=== PATIENT | male | born 1960 | race Caucasian/White ===

== ENCOUNTER 2016-11-24 14:56 | Emergency (ER) | payer OTHER ==
[~2016-11-24] VITALS: Ht 172.7 cm; Wt 70.0 kg
[2016-11-24 14:59] VITALS: BP 158/78
[2016-11-24] MEDS ORDERED: IBUPROFEN 200 MG TABLET PO ONE (15:30)
[2016-11-24] MEDS ORDERED: IBUPROFEN 200 MG TABLET ONE (15:44)
== END 2016-11-24 16:25 | disposition home or self-care (01) ==
LOC: ED 16:19
DX: J00 Acute nasopharyngitis [common cold] (principal); J02.8 Acute pharyngitis due to other specified organisms
CPT/HCPCS: 87081; 87880; 99283

== ENCOUNTER 2018-02-12 23:41 | Emergency (ER) | payer OTHER ==
[~2018-02-12] VITALS: Ht 167.6 cm; Wt 67.0 kg
[2018-02-13] MEDS ORDERED: ONDANSETRON ODT 8 MG PO ONE (00:10)
[2018-02-13] MEDS ORDERED: LORazepam 2 MG/ML, 1ML ONE (00:14)
[2018-02-13] MEDS ORDERED: ONDANSETRON 2MG/ML, 2ML ONE (00:14)
[2018-02-13] MEDS ORDERED: PROMETHAZINE 25 MG/ML, 1ML ONE (00:14)
[2018-02-13 00:23] LABS: BASOPHILS # (AUTO) 0.02 x10^3/uL (0-0.1); BASOPHILS % (AUTO) 0 % (0-1); EOSINOPHILS % (AUTO) 0 % (1-7); LYMPHOCYTES # (AUTO) 0.48 x10^3/uL (1-3.4); LYMPHOCYTES % (AUTO) 10 % (22-44); MD NO; MEAN CORPUSCULAR HGB CONC 34.7 g/dL (33.2-36.2); MEAN CORPUSCULAR VOLUME 100.8 fL (81-97); MEAN PLATELET VOLUME 7.5 fL (7.4-10.4); MONOCYTES # (AUTO) 0.22 x10^3/uL (0.2-0.8); MONOCYTES % (AUTO) 4 % (2-9); NEUTROPHILS # (AUTO) 4.18 x10^3/uL (1.8-6.8); NEUTROPHILS % (AUTO) 85 % (42-75); PLATELET COUNT 110 x10^3/uL (130-400); RED BLOOD COUNT 4.38 x10^6/uL (4.38-5.82); RED CELL DISTRIBUTION WIDTH 12.5 % (9.4-14.8)
[2018-02-13 00:29] LABS: ALANINE AMINOTRANSFERASE 44 U/L (12-78); ALBUMIN 4.4 g/dL (3.4-5.0); ANION GAP 12 mmol/L (5-15); CALCIUM 8.9 mg/dL (8.5-10.1); CHLORIDE 104 mmol/L (98-107); CREATININE 0.68 mg/dL (0.7-1.3)
[2018-02-13] MEDS ORDERED: SODIUM CHLORIDE 0.9% 1,000ML IVBOLUS ONE (00:30)
[2018-02-13] MEDS ORDERED: LORazepam 2 MG/ML, 1ML IVPush PRN (00:30)
[2018-02-13] MEDS ORDERED: LORazepam 1MG TABLET PO ONE ×2 (00:30→02:30)
[2018-02-13] MEDS ORDERED: THIAMINE 100 MG/ML, 2ML IM ONE (00:30)
[2018-02-13] MEDS ORDERED: SODIUM CHLORIDE FLUSH 10ML SYR IVF ONE (00:30)
[2018-02-13] MEDS ORDERED: ONDANSETRON 2MG/ML, 2ML IVPush ONE (00:30)
[2018-02-13] MEDS ORDERED: PROMETHAZINE 25 MG/ML, 1ML IM ONE (00:30)
[2018-02-13] MEDS ORDERED: THIAMINE 100MG TABLET PO ONE (00:30)
[2018-02-13 00:32] LABS: ALKALINE PHOSPHATASE 62 U/L (45-117); TOTAL PROTEIN 7.9 g/dL (6.4-8.2)
[2018-02-13] MEDS ORDERED: THIAMINE 100 MG/ML, 2ML ONE (00:38)
[2018-02-13] MEDS ORDERED: LORazepam 1MG TABLET ONE (02:04)
[2018-02-13 02:11] VITALS: BP 168/92
== END 2018-02-13 02:14 | disposition home or self-care (01) ==
LOC: ED 23:59
DX: F10.231 Alcohol dependence with withdrawal delirium (principal); R11.2 Nausea with vomiting, unspecified; Z79.899 Other long term (current) drug therapy
CPT/HCPCS: 36415; 80053; 80307; 83690; 85025; 96361; 96372; 96374; 96375; 99284; J2060; J2405; J2550; J3411; J7030

== ENCOUNTER 2018-03-02 11:17 | Emergency (ER) | payer OTHER ==
[~2018-03-02] VITALS: Ht 172.7 cm; Wt 68.0 kg
[2018-03-02] MEDS ORDERED: SODIUM CHLORIDE 0.9% 1,000 ML IV ONE (11:47)
[2018-03-02] MEDS ORDERED: ONDANSETRON ODT 4 MG PO ONE (12:00)
[2018-03-02] MEDS ORDERED: LORazepam 2 MG/ML, 1ML IVPush ONE (12:00)
[2018-03-02] MEDS ORDERED: PLEASE ENTER HEIGHT AND WEIGHT MC SCH (12:00)
[2018-03-02] MEDS ORDERED: ONDANSETRON ODT 4 MG ONE (12:02)
[2018-03-02] MEDS ORDERED: LORazepam 2 MG/ML, 1ML ONE (12:03)
[2018-03-02 12:15] LABS: BASOPHILS # (AUTO) 0.07 x10^3/uL (0-0.1); BASOPHILS % (AUTO) 2 % (0-1); EOSINOPHILS # (AUTO) 0.02 x10^3/uL (0-0.4); EOSINOPHILS % (AUTO) 0 % (1-7); LYMPHOCYTES # (AUTO) 0.81 x10^3/uL (1-3.4); LYMPHOCYTES % (AUTO) 17 % (22-44); MD NO; MEAN CORPUSCULAR HEMOGLOBIN 34.6 pg (27.5-34.5); MEAN CORPUSCULAR HGB CONC 34.4 g/dL (33.2-36.2); MEAN CORPUSCULAR VOLUME 100.6 fL (81-97); MEAN PLATELET VOLUME 7.4 fL (7.4-10.4); MONOCYTES # (AUTO) 0.39 x10^3/uL (0.2-0.8); MONOCYTES % (AUTO) 8 % (2-9); NEUTROPHILS # (AUTO) 3.52 x10^3/uL (1.8-6.8); NEUTROPHILS % (AUTO) 73 % (42-75); PLATELET COUNT 209 x10^3/uL (130-400); RED CELL DISTRIBUTION WIDTH 12.4 % (9.4-14.8)
[2018-03-02 12:23] LABS: CHLORIDE 101 mmol/L (98-107)
[2018-03-02 12:34] LABS: ALANINE AMINOTRANSFERASE 56 U/L (12-78); ALBUMIN 4.5 g/dL (3.4-5.0); ALKALINE PHOSPHATASE 71 U/L (45-117); ANION GAP 12 mmol/L (5-15); BILIRUBIN,TOTAL 1.1 mg/dL (0.2-1.0); CALCIUM 9.2 mg/dL (8.5-10.1); CREATININE 0.78 mg/dL (0.7-1.3); TOTAL PROTEIN 8.7 g/dL (6.4-8.2)
[2018-03-02 14:53] VITALS: BP 165/96
== END 2018-03-02 14:55 | disposition home or self-care (01) ==
LOC: ED 14:47
DX: F10.239 Alcohol dependence with withdrawal, unspecified (principal); R45.4 Irritability and anger; I10 Essential (primary) hypertension
CPT/HCPCS: 36415; 80053; 83690; 85025; 96374; 99284; J2060; J7030; Q0162